=== PATIENT | male | born 1935 | race Asian ===

== ENCOUNTER 2017-12-31 01:31 | Emergency (ER) | payer MEDICARE, MEDICAID ==
--- NOTE | 2017-12-31 01:55 | ED Physician Chart ---
ED Chief Complaint/HPI - Patient Information Date Seen:: 12/31/17 Time Seen:: 01:51 Chief Complaint:: fall out of bed History of Present Illness:: 82 yr old male from mo d/p mechanical all out of bed here for evaluation pt here nonverbal with alzheimers dementia Allergies:: Allergies Allergy/AdvReac Type Severity Reaction Status Date / Time No Known Allergies Allergy Verified 12/31/17 01:41 ED Review of Systems - Review of Systems General/Constitutional: No fever, No chills, No weight loss, No weakness, No diaphoresis, No edema, No loss of appetite Skin: No skin lesions, No rash, No bruising Head: No headache, No light-headedness Eyes: No loss of vision, No pain, No diplopia ENT: No earache, No nasal drainage, No sore throat, No tinnitus Neck: No neck pain, No swelling, No thyromegaly, No stiffness, No mass noted Cardio Vascular: No chest pain, No palpitations, No PND, No orthopnea, No edema Pulmonary: No SOB, No cough, No sputum, No wheezing GI: No nausea, No vomiting, No diarrhea, No pain, No melena, No hematochezia, No constipation, No hematemesis G/U: No dysuria, No frequency, No hematuria Musculoskeletal: No bone or joint pain, No back pain, No muscle pain Endocrine: No polyuria, No polydipsia Psychiatric: No prior psych history, No depression, No anxiety, No suicidal ideation Hematopoietic: No bruising, No lymphadenopathy Allergic/Immuno: No urticaria, No angioedema Neurological: No syncope, No focal symptoms, No weakness, No paresthesia, No headache, No seizure, No dizziness, No confusion, No vertigo ED Past Medical History - Past Medical History Past Medical History: Dementia, Other (alzheimers) ED Physical Exam - Physical Examination General/Constitutional: Awake, Well-developed, well-nourished, Alert, No distress, GCS 15, Non-toxic appearing, Ambulatory Head: Atraumatic Eyes: Lids, conjuctiva normal, PERRL, EOMI Skin: Nl inspection, No rash, No skin lesions, No ecchymosis, Well hydrated, No lymphadenopathy ENMT: External ears, nose nl, Nasal exam nl, Lips, teeth, gums nl Neck: Nontender, Full ROM w/o pain, No JVD, No nuchal rigidity, No bruit, No mass, No stridor Respiratory: Nl effort/Exclusion, Clear to Auscultation, No Wheeze/Rhonchi/Rales Cardio Vascular: RRR, No murmur, gallop, rubs, NL S1 S2 GI: No tenderness/rebounding/guarding, No organomegaly, No hernia, Normal BS's, Nondistended, No mass/bruits, No McBurney tenderness : No CVA tenderness Extremities: No tenderness or effusion, Full ROM, normal strength in all extremities, No edema, Normal digits & nails Neuro/Psych: Alert/oriented, DTR's symmetric, Normal sensory exam, Normal motor strength, Judgement/insight normal, Mood normal, Normal gait, No focal deficits Misc: Normal back, No paraspinal tenderness ED Septic Shock - . Is Septic Shock (SBP<90, OR Lactate>4 mmol\L) present?: No ED Reassessment (Disposition) - Reassessment Reassessment Condition:: Unchanged - Diagnosis Diagnosis:: mechanical fall out of bed - Patient Disposition Discharge/Transfer:: [facility] - SNF Condition at Disposition:: Stable
[2017-12-31 02:11] LABS: URINE SOURCE CLEAN C
[2017-12-31 02:13] LABS: % BASOPHILS 0.9 % (0.0-2.0); % EOSINOPHILS 4.1 % (0.0-5.0); % LYMPHOCYTES 38.2 % (20.0-50.0); % MONOCYTES 6.1 % (2.0-10.0); % NEUTROPHILS 50.7 % (40.0-80.0); EOSINOPHILE ABSOLUTE 0.2 Th/cmm (0.1-0.4); HEMATOCRIT 45.8 % (41.0-60); HEMOGLOBIN 14.9 gm/dL (12-16); LYMPHOCYTE ABSOLUTE 1.8 Th/cmm (1.5-3.0); MEAN CELL VOLUME 93.7 fl (80-99); MEAN CORPUSCULAR HEMOGLOBIN 30.5 pg (27.0-31.0); MEAN CORPUSCULAR HGB CONC 32.5 pg (28.0-36.0); MONOCYTE ABSOLUTE 0.3 Th/cmm (0.3-1.0); NEUTROPHILE ABSOLUTE 2.5 Th/cmm (1.8-8.0); PLATELET COUNT 204 Th/cmm (150-400); RED BLOOD COUNT 4.89 Mil/cmm (3.80-5.80); RED CELL DISTRIBUTION WIDTH 12.2 % (11.5-20.0); WHITE BLOOD COUNT 4.8 Th/cmm (4.8-10.8)
[2017-12-31 02:14] LABS: URINE BILIRUBIN NEGATIVE (NEGATIVE); URINE BLOOD NEGATIVE (NEGATIVE); URINE GLUCOSE (UA) NEGATIVE (NEGATIVE); URINE KETONE NEGATIVE (NEGATIVE); URINE LEUKOCYTE ESTERASE NEGATIVE (NEGATIVE); URINE NITRATE NEGATIVE (NEGATIVE); URINE PROTEIN NEGATIVE (NEGATIVE); URINE UROBILINOGEN 0.2 E.U./dL (0.2 - 1.0)
[2017-12-31 02:17] LABS: URINE CLARITY CLEAR (CLEAR); URINE COLOR YELLOW; URINE MICROSCOPIC INDICATED? NO
[2017-12-31 02:29] LABS: ALB/GLOB RATIO 1.5 (1.0-1.8); ALKALINE PHOSPHATASE 90 U/L (34-104); ANION GAP 10.3 (7.0-16.0); BUN - UREA NITROGEN 17 mg/dL (7-25); CALCIUM SERUM 9.1 mg/dL (8.6-10.3); CARBON DIOXIDE 25.5 mEq/L (21.0-31.0); CHLORIDE 102 mEq/L (98-107); CREATININE - SERUM 0.9 mg/dL (0.7-1.3); GLUCOSE 114 mg/dL (70-105); POTASSIUM SERUM 3.8 mEq/L (3.5-5.1); SGOT 12 U/L (13-39); SGPT/ALT 13 U/L (7-52); SODIUM SERUM 134 mEq/L (136-145); TOTAL PROTEIN,SERUM 6.6 gm/dL (6.0-8.3)
--- NOTE | 2017-12-31 08:27 | Diagnostic Imaging Report ---
CT scan of the brain without intravenous contrast HISTORY: Status post fall Total DLP equals 664 CTDI equals 39.6 Axial sections were obtained from the base of the skull to the vertex. There is prominence/enlargement of the ventricular system size. Associated enlargement of cerebral sulci and subarachnoid cisterns. Findings are consistent with changes of generalized cerebral atrophy. No acute parenchymal abnormalities. No acute cerebral hemorrhage. Vascular calcifications appreciated. Hypodensity is seen within the supratentorial white matter regions without mass effect. The findings may be associated with chronic small vessel ischemic disease. No extra-axial masses or abnormal fluid collections. There is evidence of sinusitis IMPRESSION: 1. No acute abnormalities 2. Cerebral atrophy 3. Supratentorial white matter changes that may reflect chronic small vessel ischemic disease
== END 2017-12-31 03:35 ==
LOC: ER 01:31
DX: G30.9 Alzheimer's disease, unspecified (principal); F02.80 Dementia in other diseases classified elsewhere, unspecified severity, without behavioral disturbance, psychotic disturbance, mood disturbance, and anxiety; W06.XXXA Fall from bed, initial encounter; Y93.89 Activity, other specified; Y92.89 Other specified places as the place of occurrence of the external cause; Y99.8 Other external cause status
CPT/HCPCS: 36415-UA; 70450-TC; 80053-TC; 81003-TC; 85025-TC

== ENCOUNTER 2018-04-21 20:58 | Emergency (ER) | payer MEDICARE, MEDICAID ==
--- NOTE | 2018-04-21 21:40 | ED Physician Chart ---
ED Chief Complaint/HPI - Patient Information Date Seen:: 04/21/18 Time Seen:: 21:39 Chief Complaint:: Head trauma History of Present Illness:: 83 yo male tripped and fell during a shower and hit the back of his head on a sink with a left occipital scalp hematoma and minor bleed. Pt was brought to ER for further evaluation. Per EMT, pt had no loss of consciousness, nausea or vomiting. Allergies:: Allergies Allergy/AdvReac Type Severity Reaction Status Date / Time No Known Allergies Allergy Verified 12/31/17 01:41 ED Review of Systems - Review of Systems General/Constitutional: No fever Skin: Skin lesions Head: Headache Eyes: No pain ENT: No nasal drainage Neck: Neck pain Cardio Vascular: No chest pain Pulmonary: No SOB GI: No nausea, No vomiting Musculoskeletal: No bone or joint pain Neurological: No focal symptoms ED Past Medical History - Past Medical History Past Medical History: Other (VERTIGO) Social History: Non Smoker, No Alcohol, No Drug Use Psychiatricy History: Dementia Family Medical History - Family Member Mother History Unknown: Yes Ethnicity: Non- ED Physical Exam - Physical Examination General/Constitutional: Awake, Alert Other Head comments:: Left occipital hematoma and ecchymosis, tiny scalp abrasion, no nadine laceration Eyes: PERRL ENMT: Nasal exam nl Neck: No nuchal rigidity Respiratory: No Wheeze/Rhonchi/Rales Cardio Vascular: RRR, No murmur, gallop, rubs, NL S1 S2 GI: No tenderness/rebounding/guarding Extremities: normal strength in all extremities Neuro/Psych: No focal deficits ED Labs/Radiology/EKG Results - Radiology Results Results: CT head wo contrast: left scalp soft tissue swelling. No intracranial hemorrhage. Atrophy CT cervical spine wo contrast: No acute fracture or subluxation ED Assessment - Assessment General Assessment: Left scalp hematoma, s/p head trauma Dementia Assessment/Comments:: CBC, CMP, PT/PTT UA CT head wo contrast CT cervical spine wo contrast ED Septic Shock - . Is Septic Shock (SBP<90, OR Lactate>4 mmol\L) present?: No ED Reassessment (Disposition) - Reassessment Reassessment Condition:: Improved - Patient Disposition Discharge/Transfer:: [facility] - [facility]F
[2018-04-21 22:28] LABS: % BASOPHILS 0.1 % (0.0-2.0); % EOSINOPHILS 1.3 % (0.0-5.0); % LYMPHOCYTES 14.7 % (20.0-50.0); % MONOCYTES 5.7 % (2.0-10.0); % NEUTROPHILS 78.2 % (40.0-80.0); EOSINOPHILE ABSOLUTE 0.1 Th/cmm (0.1-0.4); HEMATOCRIT 46.8 % (41.0-60); HEMOGLOBIN 15.1 gm/dL (12-16); LYMPHOCYTE ABSOLUTE 1.1 Th/cmm (1.5-3.0); MEAN CELL VOLUME 91.5 fl (80-99); MEAN CORPUSCULAR HEMOGLOBIN 29.6 pg (27.0-31.0); MEAN CORPUSCULAR HGB CONC 32.3 pg (28.0-36.0); MEAN PLATELET VOLUME 6.1 fl; MONOCYTE ABSOLUTE 0.4 Th/cmm (0.3-1.0); NEUTROPHILE ABSOLUTE 6.1 Th/cmm (1.8-8.0); PLATELET COUNT 225 Th/cmm (150-400); RED BLOOD COUNT 5.12 Mil/cmm (3.80-5.80); RED CELL DISTRIBUTION WIDTH 12.2 % (11.5-20.0); WHITE BLOOD COUNT 7.7 Th/cmm (4.8-10.8)
[2018-04-21 22:41] LABS: ALB/GLOB RATIO 1.6 (1.0-1.8); ALBUMIN 4.1 gm/dL (4.2-5.5); ALKALINE PHOSPHATASE 84 U/L (34-104); ANION GAP 12.2 (7.0-16.0); BILIRUBIN,TOTAL 1.8 mg/dL (0.3-1.0); BUN - UREA NITROGEN 16 mg/dL (7-25); CALCIUM SERUM 9.3 mg/dL (8.6-10.3); CARBON DIOXIDE 26.5 mEq/L (21.0-31.0); CHLORIDE 101 mEq/L (98-107); CREATININE - SERUM 0.8 mg/dL (0.7-1.3); GLUCOSE 119 mg/dL (70-105); POTASSIUM SERUM 3.7 mEq/L (3.5-5.1); SGOT 18 U/L (13-39); SGPT/ALT 18 U/L (7-52); SODIUM SERUM 136 mEq/L (136-145); TOTAL PROTEIN,SERUM 6.7 gm/dL (6.0-8.3)
[2018-04-21 23:34] LABS: URINE SOURCE MIDSTREAM
[2018-04-21 23:41] LABS: URINE BILIRUBIN NEGATIVE (NEGATIVE); URINE BLOOD NEGATIVE (NEGATIVE); URINE GLUCOSE (UA) NEGATIVE (NEGATIVE); URINE KETONE NEGATIVE (NEGATIVE); URINE LEUKOCYTE ESTERASE NEGATIVE (NEGATIVE); URINE NITRATE NEGATIVE (NEGATIVE); URINE PROTEIN NEGATIVE (NEGATIVE); URINE UROBILINOGEN 0.2 E.U./dL (0.2 - 1.0)
[2018-04-21 23:50] LABS: URINE COLOR STRAW
[2018-04-21 23:51] LABS: URINE CLARITY CLEAR (CLEAR); URINE MICROSCOPIC INDICATED? NO
--- NOTE | 2018-04-22 09:22 | Diagnostic Imaging Report ---
Head CT without intravenous contrast Indication: Trauma Comparison: Head CT 12/31/2017 Technique: Axial images were obtained from the vertex to the skull base without IV contrast. Coronal reconstructions were made. Total DLP: 1486, CTDI82 FINDINGS: Images of the brain obtained without contrast demonstrate no evidence of an acute hemorrhage. Atrophy is noted. The ventricles and basal cisterns are patent. No mass effect or midline shift. Diffuse atherosclerosis is noted. There is diffuse soft tissue swelling throughout the left posterior scalp. No skull fracture identified. Sinusitis is noted with almost complete opacification right maxillary sinus with probable mucus retention cysts versus polyps of the sinuses. Small air-fluid level of the left sphenoid sinus is noted. IMPRESSION: Marked left posterior scalp soft tissue swelling. No skull fracture identified. No evidence of an acute intracranial hemorrhage. Atrophy. Sinusitis. This is most pronounced in the right maxillary sinus. Small air-fluid level of left sphenoid sinus is also noted. Atherosclerotic vascular disease.
--- NOTE | 2018-04-22 09:26 | Diagnostic Imaging Report ---
CT cervical spine without IV contrast HISTORY: Fall COMPARISON: None Technique: Axial images were obtained from the skull base to the upper thoracic spine without IV contrast. Multiplanar reconstructions were made. Total DLP: 978, CTDI 45 FINDINGS: Images of the cervical spine obtained without contrast demonstrate no evidence of an acute fracture or subluxation. Moderate to advanced degenerative changes are seen with mild disc space loss identified extending from C4 through C7. Mild marginal osteophytic spurs are also noted. No prevertebral soft tissue swelling. Atherosclerosis is noted. IMPRESSION: No evidence of acute fracture or subluxation. Moderate degenerative changes. Atherosclerotic vascular disease.
[2018-04-22 12:09] LABS: INR 1.07 (0.5-1.4); PROTHROMBIN TIME (TEST) 11.1 SECONDS (9.5-11.5)
== END 2018-04-21 23:55 ==
LOC: ER 20:58
DX: S00.03XA Contusion of scalp, initial encounter (principal); F03.90 Unspecified dementia, unspecified severity, without behavioral disturbance, psychotic disturbance, mood disturbance, and anxiety; W01.0XXA Fall on same level from slipping, tripping and stumbling without subsequent striking against object, initial encounter; Y93.89 Activity, other specified; Y92.89 Other specified places as the place of occurrence of the external cause; Y99.8 Other external cause status
CPT/HCPCS: 36415-UA; 70450-TC; 72125-TC; 80053-TC; 81003-TC; 83880-TC; 84484-TC; 85025-TC; 85610-TC; Z7502

== ENCOUNTER 2018-06-29 23:51 | Emergency (ER) | payer MEDICARE, MEDICAID ==
--- NOTE | 2018-06-30 00:14 | ED Physician Chart ---
ED Chief Complaint/HPI - Patient Information Date Seen:: 06/30/18 Time Seen:: 00:11 Chief Complaint:: fall bruise rt hand History of Present Illness:: 83 yr old male [facility] with fall on hand with bruising no head trauma no change in mental status Allergies:: Allergies Allergy/AdvReac Type Severity Reaction Status Date / Time No Known Allergies Allergy Verified 06/29/18 23:58 Vitals:: Vital Signs - 8 hr 06/29/18 23:55 Temp 96.8 F HR 80 RR 18 BP 142/83 O2 Sat % 94 ED Review of Systems - Review of Systems General/Constitutional: No fever Skin: Skin lesions Head: No headache Eyes: No loss of vision ENT: No earache Neck: No neck pain Cardio Vascular: No chest pain Pulmonary: No SOB GI: No vomiting G/U: No hematuria Endocrine: No polyuria Hematopoietic: Bruising Allergic/Immuno: No urticaria Neurological: No syncope ED Past Medical History - Past Medical History Past Medical History: Other Family Medical History - Family Member Mother History Unknown: Yes Ethnicity: Non- ED Physical Exam - Physical Examination General/Constitutional: Awake Head: Atraumatic Eyes: Lids, conjuctiva normal Other Skin comments:: abrasion dorsum rt hand ENMT: External ears, nose nl Neck: Nontender Respiratory: Nl effort/Exclusion Cardio Vascular: RRR GI: No tenderness/rebounding/guarding Other Extremities comments:: bruising dorsum rt hand ED Septic Shock - . Is Septic Shock (SBP<90, OR Lactate>4 mmol\L) present?: No - <6hrs of presentation: Vital Signs: Vital Signs - 8 hr 06/29/18 23:55 Temp 96.8 F HR 80 RR 18 BP 142/83 O2 Sat % 94 ED Reassessment (Disposition) - Reassessment Reassessment:: contusion rt hand after fall - Diagnosis Diagnosis:: as above - Patient Disposition Discharge/Transfer:: Assisted Care - SNF Condition at Disposition:: Stable
--- NOTE | 2018-06-30 08:04 | Diagnostic Imaging Report ---
Exam: Right hand HISTORY: Pain Findings: Multiple views of the right hand reviewed. The study demonstrates no evidence of fracture, dislocation or soft tissue swelling. The radiocarpal joint is intact. IMPRESSION: Normal examination right hand.
== END 2018-06-30 02:22 ==
LOC: ER 23:51
DX: S60.221A Contusion of right hand, initial encounter (principal); W18.39XA Other fall on same level, initial encounter; Y93.89 Activity, other specified; Y92.89 Other specified places as the place of occurrence of the external cause; Y99.8 Other external cause status
CPT/HCPCS: 73120-TC-RT; Z7502

== ENCOUNTER 2018-07-14 09:53 | Emergency (ER) | payer MEDICARE, MEDICAID ==
--- NOTE | 2018-07-14 10:17 | ED Physician Chart ---
ED Chief Complaint/HPI - Patient Information Date Seen:: 07/14/18 Time Seen:: 10:00 Chief Complaint:: Fall History of Present Illness:: onset x 3 hours of a witnessed accidental fall; no apparent injuries; no report of LOC, ALOC, AMS, Syncope, NS, visual or gait changes, H/As, neck pain, weakness, dizziness, paresthesias, vertigo, cough, C/P, SOB, Abd. Pain, or urinary s/s; pt's last tetanus shot: < 5 years; pt is eating and urinating well ; pt last urinated one hour [employer] Allergies:: Allergies Allergy/AdvReac Type Severity Reaction Status Date / Time No Known Allergies Allergy Verified 06/29/18 23:58 Vitals:: Vital Signs - 8 hr 07/14/18 10:04 Temp 97.7 F HR 112 RR 20 BP 107/70 O2 Sat % 95 Historian:: Patient, EMS Review:: Nurse's Note Reviewed, Old Chart Reviewed, EMS run form Reviewed ED Review of Systems - Review of Systems General/Constitutional: No fever, No chills, No weight loss, No weakness, No diaphoresis, No edema, No loss of appetite Skin: No skin lesions, No rash, No bruising Head: No headache, No light-headedness Eyes: No loss of vision, No pain, No diplopia ENT: No earache, No nasal drainage, No sore throat, No tinnitus Neck: No neck pain, No swelling, No thyromegaly, No stiffness, No mass noted Cardio Vascular: No chest pain, No palpitations, No PND, No orthopnea, No edema Pulmonary: No SOB, No cough, No sputum, No wheezing GI: No nausea, No vomiting, No diarrhea, No pain, No melena, No hematochezia, No constipation, No hematemesis G/U: No dysuria, No frequency, No hematuria, No nacturia Musculoskeletal: No bone or joint pain, No back pain, No muscle pain Endocrine: No polyuria, No polydipsia Psychiatric: Prior psych history, No depression, Anxiety, No suicidal ideation, No homicidal ideation, No auditory hallucination, No visual hallucination Hematopoietic: No bruising, No lymphadenopathy Allergic/Immuno: No urticaria, No angioedema Neurological: No syncope, No focal symptoms, No weakness, No paresthesia, No headache, Seizure, No dizziness, Confusion, No vertigo ED Past Medical History - Past Medical History Obtainable: Yes Past Medical History: HTN, CAD, DVT/PE, Dyslipidemia, Seizures, Dementia Family History: HTN Social History: Non Smoker, No Alcohol, No Drug Use, , Care Facility Surgical History: None Psychiatricy History: Dementia Medication: Reviewed Family Medical History - Family Member Mother History Unknown: Yes Ethnicity: Non- ED Physical Exam - Physical Examination General/Constitutional: Awake, Well-developed, well-nourished, Alert, No distress, GCS 15, Non-toxic appearing, Ambulatory Head: Atraumatic Eyes: Lids, conjuctiva normal, PERRL, EOMI Skin: Nl inspection, No rash, No skin lesions, No ecchymosis, Well hydrated, No lymphadenopathy ENMT: External ears, nose nl, TM canals nl, Nasal exam nl, Lips, teeth, gums nl , Oropharynx nl, Tonsils nl Neck: Nontender, Full ROM w/o pain, No JVD, No nuchal rigidity, No bruit, No mass, No stridor Other Neck comments:: supple; no meningeal signs; no cervical tenderness; no bruits Respiratory: Nl effort/Exclusion, Clear to Auscultation, No Wheeze/Rhonchi/Rales Cardio Vascular: RRR, No murmur, gallop, rubs, NL S1 S2, Carotid/Femoral/Distal pulses equal bilaterally GI: No tenderness/rebounding/guarding, No organomegaly, No hernia, Normal BS's, Nondistended, No mass/bruits, No McBurney tenderness, Rectum exam nl Other GI comments:: no pulsatile masses; good BS : No CVA tenderness Extremities: No tenderness or effusion, Full ROM, normal strength in all extremities, No edema, Normal digits & nails Neuro/Psych: Alert/oriented, DTR's symmetric, Normal sensory exam, Normal motor strength, Judgement/insight normal, Mood normal, Normal gait, No focal deficits Other Neuro/Psych comments:: no focal signs Misc: Normal back, No paraspinal tenderness ED Labs/Radiology/EKG Results - Lab Results Comments:: Reviewed - Radiology Results Comments:: ASCVD; DJD Changes; NAD - EKG Interpretations EKG Time:: 10:20 Rate & Rhythm: 102; ST Comments:: LAD; non-specific st-t changes ED Septic Shock - . Is Septic Shock (SBP<90, OR Lactate>4 mmol\L) present?: No - <6hrs of presentation: Vital Signs: Vital Signs - 8 hr 07/14/18 10:04 Temp 97.7 F HR 112 RR 20 BP 107/70 O2 Sat % 95 ED Reassessment (Disposition) - Reassessment Reassessment:: pt tolerated po fluids well in ER; pt is asymptomatic upon discharge Reassessment Condition:: Improved - Diagnosis Diagnosis:: Fall; No Injuries; ASCVD; DJD; Osteoarthritis; Accidental Fall - Aftercare/Follow up Instructions Aftercare/Follow-Up Instructions:: Counseled pt regarding lab results/diagnosis & need follow up, Refer to Discharge Instructions, Counseled pt & family regarding lab results/diagnosis & need follow up Notes:: Dr. Payan notified - Patient Disposition Discharge/Transfer:: [facility] - SNF Accepting Physician:: Dr. Payan Time Called:: 1200 Time Responded:: 12:00 Transport Method:: ACLS Spoke to:: Dr. Payan Admitting Medical Physician:: Dr. Payan Condition at Disposition:: Stable, Improved (X-Rays Instructions; RTER prn if existing s/s reoccur and/or get worse and/or any other new s/s occur; ACIs given for all above Dx; Refer to [employer] LIA; F/U with PMD Today or prn; RTER prn if concerned)
[2018-07-14 10:46] LABS: INR 1.13 (0.5-1.4); PROTHROMBIN TIME (TEST) 11.6 SECONDS (9.5-11.5)
[2018-07-14 10:55] LABS: ALB/GLOB RATIO 1.3 (1.0-1.8); ALBUMIN 3.9 gm/dL (4.2-5.5); ALKALINE PHOSPHATASE 90 U/L (34-104); BILIRUBIN,TOTAL 1.4 mg/dL (0.3-1.0); BUN - UREA NITROGEN 18 mg/dL (7-25); CALCIUM SERUM 9.3 mg/dL (8.6-10.3); CARBON DIOXIDE 28.8 mEq/L (21.0-31.0); CHLORIDE 103 mEq/L (98-107); CHOLESTEROL 130 mg/dL (<200); CREATININE - SERUM 0.9 mg/dL (0.7-1.3); CREATININE KINASE 24 U/L (30-223); GLUCOSE 92 mg/dL (70-105); HDL -HIGH DENSITY LIPOPROTEIN 42 mg/dL (23-92); POTASSIUM SERUM 3.8 mEq/L (3.5-5.1); SGOT 15 U/L (13-39); SGPT/ALT 13 U/L (7-52); SODIUM SERUM 138 mEq/L (136-145); TRIGLYCERIDES 116 mg/dL (<150)
--- NOTE | 2018-07-14 11:11 | Diagnostic Imaging Report ---
CT scan cervical spine HISTORY: Pain, trauma Total DLP equals 440 CTDI equals 16.8 Axial sections were obtained to the cervical spine. Additional sagittal and coronal reformatted images are provided. Alignment is normal. Narrowing of the C4-5, C5-6, and C6-7 interspaces. Small spur formation noted about the endplates of these vertebrae. No significant extradural abnormalities. No acute abnormalities. No fractures. The prevertebral soft tissues appear normal. Atherosclerotic calcification noted through the region of the carotid arteries. IMPRESSION: 1. No acute abnormalities 2. Degenerative changes 3. Atherosclerotic vascular changes
--- NOTE | 2018-07-14 11:11 | Diagnostic Imaging Report ---
CT scan of the brain without intravenous contrast HISTORY: Headache, trauma Total DLP equals 742 CTDI equals 38.9 Axial sections were obtained from the base of the skull to the vertex. There is prominence/enlargement of the ventricular system size. Associated enlargement of cerebral sulci and subarachnoid cisterns. Findings are consistent with changes of generalized cerebral atrophy. No acute parenchymal abnormalities. No acute cerebral hemorrhage. Hypodensity is seen within the supratentorial white matter regions without mass effect. The findings may be associated with chronic small vessel ischemic disease. No extra-axial masses or abnormal fluid collections. Atherosclerotic calcification is seen in the region of the vertebral arteries at the base of the skull. Mucosal thickening noted within the maxillary, ethmoid, and left sphenoid sinus regions. Round intraluminal densities noted within the maxillary sinuses which may be associated with mucosal polyps or cysts. IMPRESSION: 1. No acute abnormalities 2. Cerebral atrophy 3. Supratentorial white matter changes that may reflect chronic small vessel ischemic disease 4. Mucosal thickening within the paranasal sinuses as noted above. Intraluminal density seen within the maxillary sinuses which may be associated with mucosal polyps or cysts. 5. Severe atherosclerotic vascular changes in the region of the vertebral arteries at the base of the skull. In view of the patient's history of recurrent falls, changes related to vertebral insufficiency cannot be excluded. Clinical correlation is needed. 6. No significant change since the prior exam of April 21, 2018.
[2018-07-14 12:02] LABS: HEMATOCRIT 47.4 % (41.0-60); MEAN CELL VOLUME 93.5 fl (80-99); MEAN CORPUSCULAR HEMOGLOBIN 31.5 pg (27.0-31.0); RED BLOOD COUNT 5.07 Mil/cmm (3.80-5.80)
[2018-07-14 12:03] LABS: MEAN CORPUSCULAR HGB CONC 33.7 pg (28.0-36.0); PLATELET COUNT 205 Th/cmm (150-400)
[2018-07-14 12:04] LABS: BAND NEUTROPHILE 0 % (0-10); BASOPHIL 0.2 % (0-3); EOSINOPHIL 3.5 % (0-5); LYMPHOCYTE 25.4 % (20-50); MONOCYTE 9.9 % (2-10)
== END 2018-07-14 15:22 ==
LOC: ER 09:53
DX: I25.10 Atherosclerotic heart disease of native coronary artery without angina pectoris (principal); M19.90 Unspecified osteoarthritis, unspecified site; I10 Essential (primary) hypertension; E78.5 Hyperlipidemia, unspecified; Z86.718 Personal history of other venous thrombosis and embolism; F03.90 Unspecified dementia, unspecified severity, without behavioral disturbance, psychotic disturbance, mood disturbance, and anxiety
CPT/HCPCS: 36415-UA; 70450-TC; 72125-TC; 80053-TC; 80061-TC; 82550-TC; 83880-TC; 84484-TC; 85007-TC; 85025-TC; 85610-TC; 93005; 94760